=== PATIENT | male | born 1995 | race Caucasian/White ===

== ENCOUNTER 2017-08-12 12:24 | Emergency (ER) | payer SELFPAY, OTHER ==
[2017-08-12] MEDS: ALPRAZolam 0.5 MG TABLET PO (13:20)
== END 2017-08-12 14:25 | disposition home or self-care (01) ==
LOC: ER 12:24
DX: F41.9 Anxiety disorder, unspecified (principal); F43.10 Post-traumatic stress disorder, unspecified; F10.20 Alcohol dependence, uncomplicated; Z79.899 Other long term (current) drug therapy
CPT/HCPCS: 93005; 99284